=== PATIENT | female | born 1955 | race Two or more races ===

== ENCOUNTER 2022-12-10 11:51 | Outpatient (CLI) | payer OTHER, SELFPAY ==
--- NOTE | 2022-12-10 12:07 | MM_ITS ---
WS: [id number] BILATERAL SCREENING DIGITAL TOMOSYNTHESIS MAMMOGRAM WITH CAD HISTORY: SCREENING COMPARISON: 02/14/2021, 02/25/2019 Bilateral CC and MLO views with tomosynthesis and synthetic mammography submitted. Computer aided det ection analyzed. Breast composition: The breasts are heterogeneously dense, which may obscure small masses. No suspici ous masses, microcalcifications or architectural distortion. Biopsy clip RIGHT breast at 9:00. MM/[place] [id number] IMPRESSION: BI-RADS: 2-Benign FOLLOW UP: 1 Year Follow-up
== END 2022-12-10 11:52 | disposition home or self-care (01) ==
LOC: RAD 12:00
PROVIDERS: Visit Provider Nurse Practitioner Family
DX: Z12.31 Encounter for screening mammogram for malignant neoplasm of breast (principal)
CPT/HCPCS: 77063; 77067